=== PATIENT | female | born 1985 | race Caucasian/White ===

== ENCOUNTER 2020-03-25 13:24 | Outpatient (REF) | payer OTHER, SELFPAY ==
--- NOTE | 2020-03-25 13:29 | CT_ITS ---
EXAMINATION: CT ABDOMEN AND PELVIS WITHOUT CONTRAST CLINICAL INFORMATION: Flank pain. Kidney stone. COMPARISON: None TECHNIQUE: Multidetector volumetric imaging was performed from the superior aspect of the liver through the pubic symphysis. Sagittal and coronal reformatted images were obtained on the technologist's workstation. This CT examination was performed using dose optimization techniques as appropriate, variously including the following: Automated exposure control. Adjustment of mA and/or kV according to patient size (this includes techniques or standardized protocols for targeted exams where dose is matched to indication/reason for exam; i.e. extremities or head). Use of iterative reconstruction technique. DLP: 548 mGy-cm FINDINGS: LUNG BASES: The heart size is normal. The lung bases are clear. LIVER, GALLBLADDER, AND BILIARY TREE: The liver is normal in size, shape, and attenuation. No focal hepatic lesion or biliary ductal dilatation is present. The gallbladder has been surgically removed. PANCREAS: Unremarkable. SPLEEN: Unremarkable. ADRENAL GLANDS: Unremarkable. KIDNEYS AND URETERS: The kidneys are normal in size, shape, and attenuation. There is a 1 mm radiopaque nonobstructive calculi mid pole and lower pole calyx right kidney. No additional radiopaque calculi seen. No cyst or solid mass or hydronephrosis. BLADDER: Unremarkable. GASTROINTESTINAL TRACT: Scattered stool seen throughout the colon without any significant distention. The small bowel loops are normal caliber. There are surgical myranda at the ase of cecum likely from previous appendectomy. No free fluid or free air seen. ABDOMINAL WALL: There is a small umbilical hernia containing fat. LYMPH NODES: Normal. VASCULAR: Unremarkable. PELVIC VISCERA: The uterus is anteverted and unremarkable. Incidental finding of a tampon within the cervix is noted. No adnexal mass or free fluid. No abnormal pelvic lymphadenopathy. OSSEOUS STRUCTURES: Unremarkable. CT/CT abdomen pelvis wo con IMPRESSION: Nonobstructive 1 mm radiopaque calculi mid and lower pole of right kidney. No focal mass or hydronephrosis seen. Evidence of previous cholecystectomy and appendectomy.
== END 2020-03-25 13:25 | disposition home or self-care (01) ==
LOC: HO.CT 13:24
PROVIDERS: Visit Provider Urology
DX: N20.0 Calculus of kidney (principal)
CPT/HCPCS: 74176